=== PATIENT | female | born 1970 | race Two or more races ===

== ENCOUNTER 2025-01-22 15:45 | Emergency (ER) | payer MEDICAID ==
[~2025-01-22] VITALS: Ht 157.5 cm; Wt 54.5 kg
[2025-01-22 15:49] VITALS: TEMP 99.6
[2025-01-22 16:40] LABS: MEAN PLATELET VOLUME 9.0 FL (7.4-10.4); RED CELL DISTRIBUTION WIDTH 13.4 % (11.5-14.5)
[2025-01-22 16:57] LABS: CREATININE 0.83 MG/DL (0.40-0.90); TOTAL CARBON DIOXIDE 30.0 MMOL/L (24-32); eCRCL 61 ML/MIN; eGFR 72 ML/MIN
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
[2025-01-22] MEDS: ketorolac trometh 15mg/ml vial 15 MG/ML ML IM ONE (18:37)
[2025-01-22 18:52] LABS: LEUKOCYTE ESTERASE ,URINE NEGATIVE (Neg); NITRITES, URINE NEGATIVE (Neg); OCCULT BLOOD,URINE NEGATIVE (Neg)
[2025-01-22 18:59] VITALS: BP 97/56; PULSE 57; O2SAT 98
[2025-01-22 18:59] LABS: UA COLLECTION TYPE VOIDED
[2025-01-22 19:00] VITALS: RESP 14
[2025-01-22] MEDS ORDERED: AMIT50TA15 PO (19:20)
[2025-01-22] MEDS ORDERED: GABA300C PO (19:20)
== END 2025-01-22 19:35 | disposition home or self-care (01) ==
LOC: ER 15:46
DX: G89.29 Other chronic pain (principal); R51.9 Headache, unspecified; M54.50 Low back pain, unspecified
CPT/HCPCS: 36415; 80053; 81003; 83690; 85025; 96372; 99283; J1885

== ENCOUNTER 2025-05-06 13:47 | Emergency (ER) | payer MEDICAID ==
[~2025-05-06] VITALS: Ht 157.5 cm; Wt 60.0 kg
[~2025-05-06 13:47] MED LIST: GABA300C PO
[2025-05-06 13:52] VITALS: TEMP 97
--- NOTE | 2025-05-06 13:57 | Physician Documentation ---
History of Present Illness Chief Complaint: Flank Pain Stated Complaint: KIDNEY PAIN HPI 55-year-old female that presents to the emergency department for evaluation of multiple symptoms. Most notable at this time is chest pain radiating down her left arm. Patient also reports right-sided flank pain and lower abdominal pain. Patient reports that the flank pain and lower abdominal pain have been longstanding greater than 1 month. Patient reports that she was hospitalized approximately a month ago and discharge prior to these symptoms starting. Reports that she was told she needed to follow up with a specialist at that time. Patient reports that she did follow up with 1 specialist who told her that he could not find anything concerning at that time. Symptoms have persisted so she is coming in today for evaluation. Patient reports she has a history of spinal fusion feels like the pain is primarily in her lower back not in her thoracic spine. Medication Reconciliation Allergies: Coded Allergies: No Known Allergies (Unverified , 05/06/25) Scheduled Gabapentin (Neurontin), 1 CAP PO Q8H Past Medical History Past Medical History: Chronic Pain Review of Systems ROS As stated above in the HPI, otherwise all systems are reviewed and negative. Physical Exam Vital Signs: Temperature: 97.0, Source: Temporal, Heart Rate: 69, Respiratory Rate: 18, BP: 119/68, Pulse Oximetry: 100, Weight: 60.000 Physical Exam VITALS: Reviewed and as above. GENERAL: Alert, no apparent distress. HEENT: Normocephalic, atraumatic, PERRL, EOMI, dry mucosa, no erythema RESPIRATORY: Lungs clear, normal breath sounds, no respiratory distress. CHEST: No accessory muscle use, no retractions CV: Regular rate, rhythm, no edema, no murmur, No: JVD GI: Soft, non-tender, bowels sounds present, no rebound, guarding, or rigidity BACK: No CVA tenderness, or swelling, pain with palpation to the lumbar region primarily to the right side. MUSCULOSKELETAL No deformities, no edema SKIN: Warm and dry, no rash NEURO: Oriented x4, No motor or sensory deficit PSYCH: Normal mood and affect, no agitation Progress Results/Orders Results/Orders Vital Signs 05/06/25 13:52 Temp 97.0 Pulse 69 Resp 18 B/P (MAP) 119/68 Pulse Ox 100 Medical Decision Making Additional info obtained from: other Findings This patient presents with back pain most consistent with lumbosacral sprain/chronic back pain. Differential diagnoses includes lumbago versus musculoskeletal spasm / strain versus sciatica. Less likely sciatica as straight leg raise test was negative. No back pain red flags on history or physical. Presentation not consistent with malignancy (lack of history of malignancy, lack of B symptoms), fracture (no trauma, no bony tenderness to palpation), cauda equina (no bowel or urinary incontinence/retention, no saddle anesthesia, no distal weakness), AAA, viscus perforation, osteomyelitis or epidural abscess (no IVDU, vertebral tenderness), renal colic, pyelonephritis (afebrile, no CVAT, no urinary symptoms). Given the clinical picture, no indication for imaging at this time. Patient no longer has any chest pain patient reports that her primary pain is in her lumbosacral region. Twelve lead was negative chest x-ray was negative no concern for cardiac component at this time. Advised patient that she needs to follow up with her primary care provider or return to the emergency department if she develops any additional or shortness of breath. Patient given a Toradol injection with improvement in her symptoms. Patient follow up with her primary care provider. Patient will return to the emergency department with any worsening or recurrent symptoms or any additional concerning symptoms that we discussed here today i.e. return of chest pain shortness of breath lightheadedness dizziness incontinence of bowel or bladder numbness or tingling in her extremities fever chills nausea vomiting diarrhea or any other concerning symptoms that we discussed here today. Differential Dx:Considerations: Include: AAA, -Complete, - Incomplete, -Inevitable, -Missed, -Threatened, Abruptio placentae, Angina/DC, Aortic dissection, Appendicitis, Bowel obstruction, Cholangitis, Cholelithasis, Constipation, Diverticular disease, Esophageal rupture, Esophagitis, Gastritis/PUD, Gastroenteritis, GI hemorrhage, Hernia, Hepatitis, Inflammatory BD, Ischemic bowel, Ovarian cyst/torsion, Pancreatitis, PID, Porphyria, Trauma, intraabdominal, Urinary obstruction, Urinary tract infection, Urolithiasis, Other Departure Disposition: 01 HOME / SELF CARE / HOMELESS Impression: Primary Impression: Strain of lumbar region Condition: Stable Discharge Instructions: Chronic Back Pain, [id number], Lumbosacral Strain Additional Instructions: This patient presents with back pain most consistent with lumbosacral sprain/chronic back pain. Differential diagnoses includes lumbago versus musculoskeletal spasm / strain versus sciatica. Less likely sciatica as straight leg raise test was negative. No back pain red flags on history or physical. Presentation not consistent with malignancy (lack of history of malignancy, lack of B symptoms), fracture (no trauma, no bony tenderness to palpation), cauda equina (no bowel or urinary incontinence/retention, no saddle anesthesia, no distal weakness), AAA, viscus perforation, osteomyelitis or epidural abscess (no IVDU, vertebral tenderness), renal colic, pyelonephritis (afebrile, no CVAT, no urinary symptoms). Given the clinical picture, no indication for imaging at this time. Patient no longer has any chest pain patient reports that her primary pain is in her lumbosacral region. Twelve lead was negative chest x-ray was negative no concern for cardiac component at this time. Advised patient that she needs to follow up with her primary care provider or return to the emergency department if she develops any additional or shortness of breath. Patient given a Toradol injection with improvement in her symptoms. Patient follow up with her primary care provider. Patient will return to the emergency department with any worsening or recurrent symptoms or any additional concerning symptoms that we discussed here today i.e. return of chest pain shortness of breath lightheadedness dizziness incontinence of bowel or bladder numbness or tingling in her extremities fever chills nausea vomiting diarrhea or any other concerning symptoms that we discussed here today. Referrals: NO PRIMARY CARE PROVIDER (PCP) Education Educated: Patient Educated regarding: diagnosis, treatment, need for follow up Signature Scribe Signature: A Attestation: Scribed for Uma Ponce by JW Denis . 05/06/25 20:04 UMA PONCE May 06, 2025 13:57
--- NOTE | 2025-05-06 14:03 | ELECTROCARDIOGRAPH REPORT ---
[facility] Test Date: 2025-05-06 Test Time: 14:01:16 Pat Name: KEVIN AL [facility]- [id number] Room: Gender: F [employer] Monitor: : 1970 Requested By: AURELIA ROQUE Order Number: [id number] Reading MD: Measurements Intervals [place] Rate: 70 P: 79 [place]: 165 QRS: 96 QRSD: 96 T: 61 QT: 380 QTc: 410 Interpretive Statements Sinus rhythm Borderline right axis deviation Baseline wander in lead(s) V2 Please click the below link to view image of tracing.
[2025-05-06 14:36] LABS: MEAN PLATELET VOLUME 8.6 FL (7.4-10.4); RED CELL DISTRIBUTION WIDTH 13.3 % (11.5-14.5)
[2025-05-06 14:59] LABS: CREATININE 0.81 MG/DL (0.40-0.90); TOTAL CARBON DIOXIDE 30.3 MMOL/L (24-32); eCRCL 62 ML/MIN; eGFR 73 ML/MIN
[2025-05-06 15:08] LABS: PRO BRAIN NATRIURETIC PEPTIDE < 30 PG/ML (0-125)
[2025-05-06 18:44] VITALS: BP 115/78; PULSE 89; O2SAT 96
[2025-05-06 18:45] VITALS: RESP 18
[2025-05-06 19:05] LABS: URINE HCG NEGATIVE (NEG)
[2025-05-06 19:21] LABS: LEUKOCYTE ESTERASE ,URINE NEGATIVE (Neg); NITRITES, URINE NEGATIVE (Neg); OCCULT BLOOD,URINE TRACE-INTACT (Neg)
[2025-05-06 19:23] LABS: UA COLLECTION TYPE CLN CATCH MIDSTREAM
[2025-05-06 19:34] LABS: SQUAMOUS EPITHELIAL CELL,UR NONE SEEN /LPF (FEW)
[2025-05-06] MEDS: ketorolac trometh 15mg/ml vial 15 MG/ML ML IM ONE (19:40)
== END 2025-05-06 20:13 | disposition home or self-care (01) ==
LOC: ER 13:48
DX: S39.012A Strain of muscle, fascia and tendon of lower back, initial encounter (principal); G89.29 Other chronic pain; Z79.899 Other long term (current) drug therapy; X58.XXXA Exposure to other specified factors, initial encounter; Y93.89 Activity, other specified; Y92.89 Other specified places as the place of occurrence of the external cause; Y99.8 Other external cause status
CPT/HCPCS: 36415; 80053; 81001; 81025; 83690; 83880; 84484; 85025; 93005; 96372; 99284; J1885